=== PATIENT | male | born 2000 | race Caucasian/White ===

== ENCOUNTER 2021-11-22 18:52 | Inpatient (IN) ==
[2021-11-22 20:03] LABS: Appearance Urine Clear (Clear); Bilirubin Urine Negative (Negative); Blood Urine Negative (Negative); Color Urine Yellow; Glucose Urine UA Negative (Negative); Ketones Urine Negative (Negative); Leukocyte Esterase Urine Negative (Negative); Nitrite Urine Negative (Negative); Protein Urine Negative (Negative); Specific Gravity Urine 1.005 (1.000-1.030); Urobilinogen Urine Negative (Negative); pH Urine 6.5 (4.5-7.5)
[2021-11-22 20:12] LABS: Basophils # (auto) 0.04 K/uL (0-0.2); Basophils % (auto) 0.7 %; Eosinophils # (auto) 0.11 K/uL (0-0.5); Hemoglobin 14.5 g/dL (14.0-18.0); Immature Granulocytes # (auto) 0.01 K/uL (0.00-0.02); Immature Granulocytes % (auto) 0.2 %; Lymphocytes # (auto) 1.95 K/uL (1.2-3.4); Lymphocytes % (auto) 34.8 %; Mean Corpuscular Hgb Conc 36.3 g/dL (32-36); Mean Corpuscular Volume 85.7 fL (80-100); Mean Platelet Volume 9.5 fL (7.4-10.4); Monocytes # (auto) 0.29 K/uL (0.11-0.59); Monocytes % (auto) 5.2 %; Neutrophils % (auto) 57.1 %; Platelet Count 264 K/uL (130-400); RDW Coefficient of Variation 12.2 % (11.5-14.5); RDW Standard Deviation 37.9 fL (36.4-46.3); Red Blood Count 4.67 M/uL (4.7-6.1)
[2021-11-22 20:24] LABS: Amphetamines+Metham, Urine Neg (Neg); Barbiturates, Urine Neg (Neg); Benzodiazepine, Urine Neg (Neg); Cocaine, Urine Neg (Neg); MDMA (Ecstacy), Urine Neg (Neg); Methadone, Urine Neg (Neg); Opiate, Urine Neg (Neg); Phencyclidine, Urine Neg (Neg)
--- NOTE | 2021-11-22 20:26 | Emergency Department Note ---
Impression & Plan Suicidal ideation, Depression, Mood disorder ED Provider Note NAME: PATTI ALCANTARA AGE: 21 SEX: M : 2000 ARRIVES VIA: Walk-In INFORMANT: Patient ED PROVIDER(S): Gamal Riojas DO CHIEF COMPLAINT: Suicidal thoughts HPI: Patient is a 21-year-old male who presents to the ER for suicidal thoughts. Patient notes symptoms have been going on for over a year. It has worsened recently. He was talking with his girlfriend and consequently he was brought in by police. Patient notes that he has been thinking about suicide recently more frequently. He is thinking through ways that he does not want to do it. He denies any auditory visual hallucinations. No headache or change in vision. No chest pain or shortness of breath. No nausea vomiting or diarrhea. ROS: See above HPI for pertinent positives & negatives. A total of 10 systems reviewed and were otherwise negative. PAST MEDICAL HISTORY:See Below PAST SURGICAL HISTORY:See Below FAMILY HISTORY:See Below SOCIAL HISTORY:See Below HOME MEDICATIONS:See Below ALLERGIES:See Below VITALS:See Below PHYSICAL EXAMINATION: GENERAL: Sitting up in bed, alert, well appearing, well nourished, no distress, non-toxic EYE EXAM: normal conjunctiva. PERRL and EOM's grossly intact. OROPHARYNX: mucous membranes are moist LUNGS: Clear to auscultation. Normal chest wall mechanics HEART: no murmurs, S1 normal and S2 normal ABDOMEN: abdomen soft, non-tender, normo-active bowel sounds, no masses, no rebound or guarding. UPPER EXTREMITIES: upper extremities are grossly normal. LOWER EXTREMITIES: No pitting edema. NEURO EXAM: Normal sensorium, cranial nerves II-XII grossly intact, normal speech, no gross weakness of arms, no gross weakness of legs. PSYCH: Admits to suicidal thoughts MEDICAL DECISION MAKING: Patient is a 21-year-old male who presents to the ER for suicidal ideations. Blood work was obtained and showed no significant leukocytosis or anemia. BMP along with LFTs, bilirubin, and TSH was unremarkable. UA was clean. Tox was negative. Alcohol was negative. COVID was negative. Patient is agreeable to come in on a 201. I do feel this is warranted at this time with his suicidal ideations. He was updated bedside. Referred to [facility] for further evaluation. Patient was admitted on a [address] [place] [address]. Start Time: 1999 Reason: Patient with PMHx of depression underwent ED Observation for psychiatric evaluation. Fam Hx: No pertinent family history SocHx: See Below Assessment(s): Reevaluated multiple times Summary: Please refer to [facility] Disposition: 11/23/2021 at 1215 Total Time: 4.5h Triage Nursing notes reviewed. Limited review of prior medical records performed Vital Signs: reviewed and remarkable for no significant abnormalities Differential diagnosis: Mood disorder, infection, hypoglycemia, electrolyte abnormalities, cardiac sources, intracerebral event, toxicologic, trauma, neurologic, as well as other pathologies. ER treatment provided: See below Diagnostics interpreted by me: Laboratory studies: As stated above and show below. Imaging studies: See below Consultation(s): none Past Med/Surg History Social History Smoking Status: Current every day smoker Tobacco Type: E-cigarettes / Vaping Preferred Language: Greenlandic Communication Ability: Effective Vegetable Harvest Worker Required: No Beliefs That Will Affect Care: Taoist Taoist Beliefs: [place] , Spiritual Spiritual Healthcare Practices: [place] and Cultural Cultural Beliefs: [place] Feels Safe at Home: Hesitant to Answer Allergies Allergies Allergy/AdvReac Type Severity Reaction Status Date / Time No Known Allergies Allergy Verified 11/23/21 13:48 Home Meds Home Medications Medication Instructions Recorded Confirmed No Known Home Medications 11/22/21 11/22/21 Results & Data (ED) Vital Signs Vital Signs - 24 hr 11/22/21 18:56 11/22/21 21:00 Temperature 36.8 C Temperature Source Temporal Artery Scan Pulse Rate 92 H Pulse Rate [Apical] 81 Respiratory Rate 18 12 Respiratory Effort / Characteristics Non-Labored Spontaneous Respiratory Depth Normal Blood Pressure 135/84 Blood Pressure [Left Arm] 119/84 Blood Pressure Mean 101 Blood Pressure Mean [Left Arm] 95 Pulse Oximetry 98 98 Oxygen Delivery Method Room Air Sepsis Recent Fever Within 48 Hours No Sepsis New/Unexplained Change in Mental Status No Sepsis Action Taken by Nursing No Action Required Laboratory Data Result diagrams: 11/22/21 19:58 11/22/21 19:58 Lab Results 11/22/21 11/22/21 11/22/21 Range/Units 19:30 19:30 19:58 WBC 5.60 (4.8-10.8) K/uL RBC 4.67 L (4.7-6.1) M/uL Hgb 14.5 (14.0-18.0) g/dL Hct 40.0 L (42-52) % MCV 85.7 (80-100) fL MCH 31.0 (25-34) pg MCHC 36.3 H (32-36) g/dL RDW Std Deviation 37.9 (36.4-46.3) fL RDW Coeff of Dmitry 12.2 (11.5-14.5) % Plt Count 264 (130-400) K/uL MPV 9.5 (7.4-10.4) fL Immature Gran % (Auto) 0.2 % Neut % (Auto) 57.1 % Lymph % (Auto) 34.8 % Hern[place] % (Auto) 5.2 % Eos % (Auto) 2.0 % Baso % (Auto) 0.7 % Neut # (Auto) 3.20 (1.4-6.5) K/uL Lymph # (Auto) 1.95 (1.2-3.4) K/uL Hernando # (Auto) 0.29 (0.11-0.59) K/uL Eos # (Auto) 0.11 (0-0.5) K/uL Baso # (Auto) 0.04 (0-0.2) K/uL Immature Gran # (Auto) 0.01 (0.00-0.02) K/uL Sodium (136-145) mmol/L Potassium (3.5-5.1) mmol/L Chloride (98-107) mmol/L Carbon Dioxide (21-32) mmol/L Anion Gap (3-11) BUN (6-23) mg/dl Creatinine (0.6-1.4) mg/dl Est Cr Clr Drug Dosing ml/min Est GFR ( Amer) ml/min Est GFR (Non-Af Amer) ml/min BUN/Creatinine Ratio (10-20) Glucose (70-99(Fasting)) mg/dl Calcium (8.5-10.1) mg/dl Total Bilirubin (0.2-1.0) mg/dl AST (13-39) U/L ALT (7-52) U/L Alkaline Phosphatase (34-104) U/L Total Protein (6.0-8.3) gm/dl Albumin (3.4-5.0) gm/dl Globulin (2.5-4.0) gm/dl Albumin/Globulin Ratio (0.9-2) TSH (0.300-4.500) uIu/ml Urine Color Yellow Urine Appearance Clear (Clear) Urine pH 6.5 (4.5-7.5) Ur Specific [place] 1.005 (1.000-1.030) Urine Protein Negative (Negative) Urine Glucose (UA) Negative (Negative) Urine Ketones Negative (Negative) Urine Blood Negative (Negative) Urine Nitrite Negative (Negative) Urine Bilirubin Negative (Negative) Urine Urobilinogen Negative (Negative) Ur Leukocyte Esterase Negative (Negative) Salicylates (3.0-30) mg/dl Urine Opiates Screen Neg (Neg) Ur Methadone, Qual Neg (Neg) Acetaminophen (10-30) ug/ml Urine Barbiturates Neg (Neg) Ur Phencyclidine (PCP) Neg (Neg) U Amphetamin/Meth Scrn Neg (Neg) MDMA (Ecstasy) Screen Neg (Neg) U Benzodiazepines Scrn Neg (Neg) Ur Cocaine Metabolite Neg (Neg) U Marijuana (THC) Screen Neg (Neg) Ethyl Alcohol mg/dL (<10.0) mg/dl SARS-CoV-2, RNA, NAAT (NEGATIVE) 11/22/21 11/22/21 11/22/21 Range/Units 19:58 19:58 19:58 WBC (4.8-10.8) K/uL RBC (4.7-6.1) M/uL Hgb (14.0-18.0) g/dL Hct (42-52) % MCV (80-100) fL MCH (25-34) pg MCHC (32-36) g/dL RDW Std Deviation (36.4-46.3) fL RDW Coeff of Dmitry (11.5-14.5) % Plt Count (130-400) K/uL MPV (7.4-10.4) fL Immature Gran % (Auto) % Neut % (Auto) % Lymph % (Auto) % [place] % (Auto) % Eos % (Auto) % Baso % (Auto) % Neut # (Auto) (1.4-6.5) K/uL Lymph # (Auto) (1.2-3.4) K/uL [place] # (Auto) (0.11-0.59) K/uL Eos # (Auto) (0-0.5) K/uL Baso # (Auto) (0-0.2) K/uL Immature Gran # (Auto) (0.00-0.02) K/uL Sodium 137 (136-145) mmol/L Potassium 4.3 (3.5-5.1) mmol/L Chloride 102 (98-107) mmol/L Carbon Dioxide 28 (21-32) mmol/L Anion Gap 7 (3-11) BUN 16 (6-23) mg/dl Creatinine 1.08 (0.6-1.4) mg/dl Est Cr Clr Drug Dosing 113.3 ml/min Est GFR ( Amer) 111.5 ml/min Est GFR (Non-Af Amer) 96.2 ml/min BUN/Creatinine Ratio 14.8 (10-20) Glucose 90 (70-99(Fasting)) mg/dl Calcium 9.8 (8.5-10.1) mg/dl Total Bilirubin 0.7 (0.2-1.0) mg/dl AST 16 (13-39) U/L ALT 16 (7-52) U/L Alkaline Phosphatase 69 (34-104) U/L Total Protein 7.4 (6.0-8.3) gm/dl Albumin 4.8 (3.4-5.0) gm/dl Globulin 2.6 (2.5-4.0) gm/dl Albumin/Globulin Ratio 1.8 (0.9-2) TSH 3.059 (0.300-4.500) uIu/ml Urine Color Urine Appearance (Clear) Urine pH (4.5-7.5) Ur Specific [place] (1.000-1.030) Urine Protein (Negative) Urine Glucose (UA) (Negative) Urine Ketones (Negative) Urine Blood (Negative) Urine Nitrite (Negative) Urine Bilirubin (Negative) Urine Urobilinogen (Negative) Ur Leukocyte Esterase (Negative) Salicylates < 3.0 L (3.0-30) mg/dl Urine Opiates Screen (Neg) Ur Methadone, Qual (Neg) Acetaminophen < 3 L (10-30) ug/ml Urine Barbiturates (Neg) Ur Phencyclidine (PCP) (Neg) U Amphetamin/Meth Scrn (Neg) MDMA (Ecstasy) Screen (Neg) U Benzodiazepines Scrn (Neg) Ur Cocaine Metabolite (Neg) U Marijuana (THC) Screen (Neg) Ethyl Alcohol mg/dL (<10.0) mg/dl SARS-CoV-2, RNA, NAAT (NEGATIVE) 11/22/21 11/22/21 Range/Units 19:58 20:33 WBC (4.8-10.8) K/uL RBC (4.7-6.1) M/uL Hgb (14.0-18.0) g/dL Hct (42-52) % MCV (80-100) fL MCH (25-34) pg MCHC (32-36) g/dL RDW Std Deviation (36.4-46.3) fL RDW Coeff of Dmitry (11.5-14.5) % Plt Count (130-400) K/uL MPV (7.4-10.4) fL Immature Gran % (Auto) % Neut % (Auto) % Lymph % (Auto) % [place] % (Auto) % Eos % (Auto) % Baso % (Auto) % Neut # (Auto) (1.4-6.5) K/uL Lymph # (Auto) (1.2-3.4) K/uL [place] # (Auto) (0.11-0.59) K/uL Eos # (Auto) (0-0.5) K/uL Baso # (Auto) (0-0.2) K/uL Immature Gran # (Auto) (0.00-0.02) K/uL Sodium (136-145) mmol/L Potassium (3.5-5.1) mmol/L Chloride (98-107) mmol/L Carbon Dioxide (21-32) mmol/L Anion Gap (3-11) BUN (6-23) mg/dl Creatinine (0.6-1.4) mg/dl Est Cr Clr Drug Dosing ml/min Est GFR ( Amer) ml/min Est GFR (Non-Af Amer) ml/min BUN/Creatinine Ratio (10-20) Glucose (70-99(Fasting)) mg/dl Calcium (8.5-10.1) mg/dl Total Bilirubin (0.2-1.0) mg/dl AST (13-39) U/L ALT (7-52) U/L Alkaline Phosphatase (34-104) U/L Total Protein (6.0-8.3) gm/dl Albumin (3.4-5.0) gm/dl Globulin (2.5-4.0) gm/dl Albumin/Globulin Ratio (0.9-2) TSH (0.300-4.500) uIu/ml Urine Color Urine Appearance (Clear) Urine pH (4.5-7.5) Ur Specific [place] (1.000-1.030) Urine Protein (Negative) Urine Glucose (UA) (Negative) Urine Ketones (Negative) Urine Blood (Negative) Urine Nitrite (Negative) Urine Bilirubin (Negative) Urine Urobilinogen (Negative) Ur Leukocyte Esterase (Negative) Salicylates (3.0-30) mg/dl Urine Opiates Screen (Neg) Ur Methadone, Qual (Neg) Acetaminophen (10-30) ug/ml Urine Barbiturates (Neg) Ur Phencyclidine (PCP) (Neg) U Amphetamin/Meth Scrn (Neg) MDMA (Ecstasy) Screen (Neg) U Benzodiazepines Scrn (Neg) Ur Cocaine Metabolite (Neg) U Marijuana (THC) Screen (Neg) Ethyl Alcohol mg/dL < 10.0 (<10.0) mg/dl SARS-CoV-2, RNA, NAAT NEGATIVE (NEGATIVE) Discharge Plan Visit Data Chief Complaint: Mental Health Evaluation Stated Complaint: MENTAL HEALTH EVALUATION ED Provider: Gamal Riojas Discharge Problem: Suicidal ideation, Depression, Mood disorder Patient Disposition: Admitted As Inpatient Discharge Instructions Interventions: ED Discharge Assessment Last Done: 11/23/21 01:10 Discharge Problem: Depression Qualifiers: Depression Type: unspecified Qualified Code(s): F32.A - Depression, unspecified
[2021-11-22 20:39] LABS: Acetaminophen < 3 ug/ml (10-30); Albumin Globulin Ratio 1.8 (0.9-2); Albumin Level 4.8 gm/dl (3.4-5.0); BUN Creatinine Ratio 14.8 (10-20); Bilirubin,Total 0.7 mg/dl (0.2-1.0); Calcium 9.8 mg/dl (8.5-10.1); Creatinine Clr Calc Pharmacy 113.3 ml/min; Est GFR (African American) 111.5 ml/min; Est GFR (Non-African American) 96.2 ml/min; Globulin 2.6 gm/dl (2.5-4.0); Potassium 4.3 mmol/L (3.5-5.1); Salicylate < 3.0 mg/dl (3.0-30); Total Protein 7.4 gm/dl (6.0-8.3)
[2021-11-23] MEDS ORDERED: MAGNESIUM HYDROXIDE SUSP 30 ML UDC PO PRN (00:43)
[2021-11-23] MEDS ORDERED: SODIUM CHLORIDE 0.65% NA SOLN 45 ML (OCEAN) PRN (00:43)
[2021-11-23] MEDS ORDERED: hydrOXYzine HCl 25 MG TAB PO PRN ×2 (00:43)
[2021-11-23] MEDS ORDERED: BISMUTH SUBSALICYLATE LIQD 236 ML PO PRN (00:43)
[2021-11-23] MEDS ORDERED: ALUMINUM/MAGNESIUM SUSP 30 ML UDC PO PRN (00:43)
[2021-11-23] MEDS ORDERED: ACETAMINOPHEN 325 MG TAB PO PRN (00:43)
--- NOTE | 2021-11-23 13:06 | History & Physical ---
Date of Service November 23, 2021 Impression / Recommendations Impression The patient is a 21 year old man admitted for worsening depression and SI with plan of jumping from a building on campus in the context of increasing stress related to graduate school, strained relationship with his family and feeling as though he has lost agency over his life and decisions. Diagnostically consistent with persistent depressive disorder vs MDD, recurrent with anxious distress as well as RAMEZ with panic attacks. The patient is deemed unstable and requires psychiatric hospitalization for diagnostic clarification, safety and stabilization, medication management and development of further coping skills. Discussed medication treatment options in detail. Discussed risks, benefits and alternatives including SSRIs vs Wellbutrin. Patient would like to start and consented to escitalopram for MDD/RAMEZ. Reviewed side effects including but not limited to: GI, ALTAMIRANO, sexual side effects, and counseled on black box warning of potential for emergence of or increased SI and need to let staff know should th is occur or should they feel unsafe. Also discussed importance of seeking emergency care following discharge if this side effect occurs in the future. (1) Recurrent moderate major depressive disorder with anxiety: (2) Generalized anxiety disorder with panic attacks: (3) Suicidal ideation: 11/23/21: The patient was admitted to the [facility] ([facility] mental [facility] unit) on q15 min checks (behavioral with suicide precautions) for safety. The patient will participate in group, recreational, and milieu therapies and will be offered additional individual and family sessions as clinically appropriate. -escitalopram 5mg qd -he declines melatonin -NRT patch 14mg and gum prn Inventory Assets Strengths: attending graduate school, has a supportive girlfriend Needs: outpatient services, medication adjustment, stabilization, increased coping skills Suicide Risk Level Suicide Risk Level: High (q15 min suicide checks) (High-Moderate) Suicide Risk Level Comments: Depression with SI with plan prior to admission but feels safe here and agrees to let nursing/staff know should he develop thoughts of SI, plan or intent. 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 Chief Complaint "I'm here because of them, it feels like I'm in [facility]p and how do I get out?". History of Present Illness Pedro presents for psychiatric admission for worsening depression and SI with plan of jumping from a high window of a campus building in the context of multiple psychosocial stressors including conflict with his family and academic high stakes exams-his written comps is the 15th and oral comps 29th. He was brought to the ED on a 302 warrant by [employer] police after texting his girlfriend telling her that "he was going to kill himself later tonight" by jumping out of a high story window on campus. He told police that he did not want to live and was depressed due to pressure from graduate school. He ultimately agreed to a voluntary 201 status. He now tells me he was "frustrated" and "didn't have a plan" and feels that his girlfriend and her mother overreacted. He notes that graduate school is the main stressor and that "I'm damn good at it but I feel trapped, I just don't want to do it". He notes he graduated right when COVID "shut everything down so it messed me up pretty bad". He felt "pressured pretty heavily by my parents if I waited, that I'd be ruining my life if I didn't go to graduate school". He notes he is a "people pleaser" and so has difficulty pushing back against what they want. 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 He notes he had to fight with his parents to get a therapist a year ago. He feels his girlfriend is a really good support but she lives in [place]. He endorses depression symptoms including tearfulness, helplessness, still enjoys video games/listening to music but hasn't been doing them, decreased motivation, decreased sleep with initial onset insomnia but states he is sleeping 8-9 hours per night but his sleep cycle is altered, and appetite is stable. He denies any current SI. He endorses chronic SI, which varies, but when "things get really hard I want to " and feels it worsened in the context of increased school stressors. He feels the thought yesterday was impulsive. He notes he feels "very trapped". He also endorses high levels of anxiety with panic attacks, he worries he will never be able to get a job in industry because they prefer students right out of undergraduate and if he doesn't complete graduate school they would see that as a very bad sign and would prevent him from finding a job. He is not taking any psychiatric medications. Psychiatric ROS notable for denial of hx or current symptoms of: maynor, psychosis, self-harm, nor PTSD. Past Psychiatric History Outpatient Services: none currently; hx outpatient therapy last 1 year ago via teletherapy with provider in [place] Previous Psych Admissions: n/a Do You Have Access To A Gun?: No History of Previous Suicide Attempt: Yes Describe Attempts in the Past: previous attempt by hanging 6 years ago at 1st year at [employer] Past Medication Trials: none Past Head Trauma/Neuro History History of Concussion/Seizure: No Allergies Allergy/AdvReac Type Severity Reaction Status Date / Time No Known Allergies Allergy Verified 11/23/21 13:48 Home Medications Medication Instructions Recorded Confirmed Type No Known Home Medications 11/22/21 11/22/21 History Family History Family History of: Depression (sister) and Anxiety Family Mental Health History Comment: Alcohol History Hx of Alcohol Use Over the Past 12 Months: Yes (1 or 2 beers two to three days a week) AUDIT Total Score: 4 1-2 beers, 2-3 days per week. No hx blackouts. No hx legal consequences. No social consequences or academic consequences. Smoking Use Have You Smoked or Used Tobacco Products in the Last 30 Days: Yes tobacco type: e-cigarettes Smoking Status: Current every day smoker Smoking packs per day: 0.5 Substance History Hx of Prescription Med Misuse Over the Past 12 Months: No Hx of Over the Counter Med Misuse Over the Past 12 Months: No Hx of Inhalent Misuse Over the Past 12 Months: No Hx of Organic Substance Use Over the Past 12 Months: No Hx of Illegal Substances/Street Drug Use Over Past 12 Months: No Problems as a Result of Past Substance Use: None Identified Personal History Living Arrangements: Apartment (lives alone) Childhood: His parents live in [place], [place] he has a brother and sister. Attended undergraduate at [employer]. His brother is an undergrad at [employer]. 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 Required: No Beliefs That Will Affect Care: Jehovah'S Witness Jehovah'S Witness Beliefs: Hinduism of [place] , Spiritual Spiritual Healthcare Practices: Hinduism of [place] and Cultural Cultural Beliefs: Hinduism of [place] Feels Safe at Home: Hesitant to Answer Review of Systems Review of Systems: All systems reviewed & are unremarkable except as noted in HPI & below Physical Exam Psychiatric: Orientation: alert and oriented x 3 Apperance: appropriately dressed and appropriately groomed Eye Contact: good eye contact Motor Behavior: no abnormal motor movements Speech: normal rate/rhythm/volume of speech Affect: + depressed affect, + anxious affect and + tearful affect Mood: + depressed mood and + anxious mood Thought Process: goal directed thought process Thought Content: reality based without delusions Suicidal Thoughts: denies suicidal thoughts (but had SI with plan prior to admission), denies suicidal plan and denies suicidal intent Homicidal Thoughts: denies homicidal thoughts Hallucinations: no auditory hallucinations and no visual hallucinations Cognition: recent memory grossly intact, remote memory grossly intact, attention grossly intact and language grossly intact Estimated Intelligence: consistent with education level Insight: + fair insight Judgement: + limited judgement Vital Signs (Past 24 Hours): Last Vital Signs Temp 37.1 C 11/23/21 01:52 Pulse 71 11/23/21 01:52 Resp 12 11/22/21 21:00 BP 119/84 11/22/21 21:00 Pulse Ox 98 11/22/21 21:00 Exam Statement: A physical exam was performed in the ED by Dr. Riojas for the purposes of medical clearance. I accept that physical as correct and adequate for the purposes of the inpatient physical exam. Results & Data ([facility]) Laboratory Results Laboratory Results - last 24 hr 11/22/21 11/22/21 11/22/21 19:30 19:30 19:58 WBC 5.60 RBC 4.67 L Hgb 14.5 Hct 40.0 L MCV 85.7 MCH 31.0 MCHC 36.3 H RDW Std Deviation 37.9 RDW Coeff of Dmitry 12.2 Plt Count 264 MPV 9.5 Immature Gran % (Auto) 0.2 Neut % (Auto) 57.1 Lymph % (Auto) 34.8 [place] % (Auto) 5.2 Eos % (Auto) 2.0 Baso % (Auto) 0.7 Neut # (Auto) 3.20 Lymph # (Auto) 1.95 [place] # (Auto) 0.29 Eos # (Auto) 0.11 Baso # (Auto) 0.04 Immature Gran # (Auto) 0.01 Sodium Potassium Chloride Carbon Dioxide Anion Gap BUN Creatinine Est Cr Clr Drug Dosing Est GFR ( Amer) Est GFR (Non-Af Amer) BUN/Creatinine Ratio Glucose Calcium Total Bilirubin AST ALT Alkaline Phosphatase Total Protein Albumin Globulin Albumin/Globulin Ratio TSH Urine Color Yellow Urine Appearance Clear Urine pH 6.5 Ur Specific [place] 1.005 Urine Protein Negative Urine Glucose (UA) Negative Urine Ketones Negative Urine Blood Negative Urine Nitrite Negative Urine Bilirubin Negative Urine Urobilinogen Negative Ur Leukocyte Esterase Negative Salicylates Urine Opiates Screen Neg Ur Methadone, Qual Neg Acetaminophen Urine Barbiturates Neg Ur Phencyclidine (PCP) Neg U Amphetamin/Meth Scrn Neg MDMA (Ecstasy) Screen Neg U Benzodiazepines Scrn Neg Ur Cocaine Metabolite Neg U Marijuana (THC) Screen Neg Ethyl Alcohol mg/dL SARS-CoV-2, RNA, NAAT 11/22/21 11/22/21 11/22/21 19:58 19:58 19:58 WBC RBC Hgb Hct MCV MCH MCHC RDW Std Deviation RDW Coeff of Dmitry Plt Count MPV Immature Gran % (Auto) Neut % (Auto) Lymph % (Auto) [place] % (Auto) Eos % (Auto) Baso % (Auto) Neut # (Auto) Lymph # (Auto) [place] # (Auto) Eos # (Auto) Baso # (Auto) Immature Gran # (Auto) Sodium 137 Potassium 4.3 Chloride 102 Carbon Dioxide 28 Anion Gap 7 BUN 16 Creatinine 1.08 Est Cr Clr Drug Dosing 113.3 Est GFR ( Amer) 111.5 Est GFR (Non-Af Amer) 96.2 BUN/Creatinine Ratio 14.8 Glucose 90 Calcium 9.8 Total Bilirubin 0.7 AST 16 ALT 16 Alkaline Phosphatase 69 Total Protein 7.4 Albumin 4.8 Globulin 2.6 Albumin/Globulin Ratio 1.8 TSH 3.059 Urine Color Urine Appearance Urine pH Ur Specific [place] Urine Protein Urine Glucose (UA) Urine Ketones Urine Blood Urine Nitrite Urine Bilirubin Urine Urobilinogen Ur Leukocyte Esterase Salicylates < 3.0 L Urine Opiates Screen Ur Methadone, Qual Acetaminophen < 3 L Urine Barbiturates Ur Phencyclidine (PCP) U Amphetamin/Meth Scrn MDMA (Ecstasy) Screen U Benzodiazepines Scrn Ur Cocaine Metabolite U Marijuana (THC) Screen Ethyl Alcohol mg/dL SARS-CoV-2, RNA, NAAT 11/22/21 11/22/21 19:58 20:33 WBC RBC Hgb Hct MCV MCH MCHC RDW Std Deviation RDW Coeff of Dmitry Plt Count MPV Immature Gran % (Auto) Neut % (Auto) Lymph % (Auto) [place] % (Auto) Eos % (Auto) Baso % (Auto) Neut # (Auto) Lymph # (Auto) [place] # (Auto) Eos # (Auto) Baso # (Auto) Immature Gran # (Auto) Sodium Potassium Chloride Carbon Dioxide Anion Gap BUN Creatinine Est Cr Clr Drug Dosing Est GFR ( Amer) Est GFR (Non-Af Amer) BUN/Creatinine Ratio Glucose Calcium Total Bilirubin AST ALT Alkaline Phosphatase Total Protein Albumin Globulin Albumin/Globulin Ratio TSH Urine Color Urine Appearance Urine pH Ur Specific [place] Urine Protein Urine Glucose (UA) Urine Ketones Urine Blood Urine Nitrite Urine Bilirubin Urine Urobilinogen Ur Leukocyte Esterase Salicylates Urine Opiates Screen Ur Methadone, Qual Acetaminophen Urine Barbiturates Ur Phencyclidine (PCP) U Amphetamin/Meth Scrn MDMA (Ecstasy) Screen U Benzodiazepines Scrn Ur Cocaine Metabolite U Marijuana (THC) Screen Ethyl Alcohol mg/dL < 10.0 SARS-CoV-2, RNA, NAAT NEGATIVE Current Inpatient Medications Current Inpatient Medications: Current Inpatient Medications Acetaminophen (Acetaminophen 325 Mg Tab) 650 mg PO Q4H PRN PRN Reason: Headache or Minor Fever Stop: 12/23/21 00:42 Al Hydrox/Mg Hydrox/Simethicone (Aluminum/Magnesium Susp 30 Ml Udc) 30 ml PO Q4H PRN PRN Reason: GI Upset Stop: 12/23/21 00:42 Bismuth Subsalicylate (Bismuth Subsalicylate Liqd 236 Ml) 15 ml PO PRN PRN PRN Reason: Loose Stool Stop: 12/23/21 00:42 Hydroxyzine HCl (Hydroxyzine Hcl 25 Mg Tab) 50 mg PO HSZ PRN PRN Reason: Insomnia Stop: 12/23/21 00:42 Hydroxyzine HCl (Hydroxyzine Hcl 25 Mg Tab) 25 mg PO Q4H PRN PRN Reason: Anxiety Stop: 12/23/21 00:42 Magnesium Hydroxide (Magnesium Hydroxide Susp 30 Ml Udc) 30 ml PO DAILY PRN PRN Reason: Constipation Stop: 12/23/21 00:42 Sodium Chloride (Sodium Chloride 0.65% Na Soln 45 Ml ([place])) 1 - 2 sprays NA PRN PRN PRN Reason: Nasal Dryness/Congestion Stop: 12/23/21 00:42
[2021-11-23] MEDS ORDERED: NICOTINE POLACRILEX 2 MG GUM MT PRN (14:41)
[2021-11-23] MEDS: NICOTINE 14 MG/24 HR PATCH TD SCH (15:00)
[2021-11-24] MEDS: ESCITALOPRAM OXALATE 10 MG TAB PO SCH (08:49)
[2021-11-24] MEDS: NICOTINE 14 MG/24 HR PATCH TD SCH (08:50)
--- NOTE | 2021-11-24 08:50 | Psychiatric Progress Note ---
Date of Service November 24, 2021 Impression / Recommendations Impression The patient is a 21 year old man admitted for worsening depression and SI with plan of jumping from a building on campus in the context of increasing stress related to graduate school, strained relationship with his family and feeling as though he has lost agency over his life and decisions. Diagnostically consistent with persistent depressive disorder vs MDD, recurrent with anxious distress as well as RAMEZ with panic attacks. The patient is deemed unstable and requires psychiatric hospitalization for diagnostic clarification, safety and stabilization, medication management and development of further coping skills. 11/24/21: Still with depression and anxiety but feeling less frantic today given news of comprehensive exam delay. Tolerating escitalopram so far. Willing to involve his family a bit this afternoon. (1) Recurrent moderate major depressive disorder with anxiety: (2) Generalized anxiety disorder with panic attacks: (3) Suicidal ideation: 11/24/21: Continue escitalopram and tx plan. 11/23/21: The patient was admitted to the [facility] on q15 min checks (behavioral with suicide precautions) for safety. The patient will participate in group, recreational, and milieu therapies and will be offered additional individual and family sessions as clinically appropriate. -escitalopram 5mg qd -he declines melatonin -NRT patch 14mg and gum prn Inventory Assets Strengths: attending graduate school, has a supportive girlfriend Needs: outpatient services, medication adjustment, stabilization, increased coping skills Suicide Risk Level Suicide Risk Level: High (q15 min suicide checks) (High-Moderate) Suicide Risk Level Comments: Depression with SI with plan prior to admission but feels safe here and agrees to let nursing/staff know should he develop thoughts of SI, plan or intent. 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 Chief Complaint "I'm ok". Review of Systems Sleep Information Total Hours of Sleep: 5.75 Sleep Comments: pt poor sleep due to late admission. pt on q-15 minute checks Meal Information Percent Meal Consumed - Breakfast: 0 Percent Meal Consumed - Dinner: 100 Subjective Subjective Patient was seen & assessed and interval progress reviewed with treatment team nursing and social work. Attended groups yesterday late afternoon. Initially didn't sign an WOLF for parents but did for girlfriend but then did sign for his dad late this afternoon. Submitted 72 hour notice which is up on 11/26 at 1436. Today he reports his mood is "ok". He is feeling a little calmer and less urgent about discharge now that he's learned his written component of his comprehensive exams has gotten pushed back and is no longer on November 29. Slept "ok" given that his sleep schedule was so flipped and took him awhile to feel tired and able to fall asleep. No side effects from the escitalopram. Decided not to use any NRT as he hopes that this is an opportunity to get away from any nicotine products completed. Reviewed again Wellbutrin augmentation option in future if tobacco cessation remains difficult. Denies SI. Reviewed that he feels embarrassed that everyone in his lab saw the police come to check on him and take him to the hospital but also processed how other people also struggle with depression and ways he may talk to his lab mates/what he may share with them or choose not to share after he leaves the hospital. Physical Exam Psychiatric Orientation: alert and oriented x 3 Apperance: appropriately dressed and appropriately groomed Eye Contact: good eye contact Motor Behavior: no abnormal motor movements Speech: normal rate/rhythm/volume of speech Affect: + depressed affect and + anxious affect Mood: + depressed mood and + anxious mood Thought Process: goal directed thought process Thought Content: reality based without delusions Suicidal Thoughts: denies suicidal thoughts (but had SI with plan prior to admission), denies suicidal plan and denies suicidal intent Homicidal Thoughts: denies homicidal thoughts Hallucinations: no auditory hallucinations and no visual hallucinations Cognition: recent memory grossly intact, remote memory grossly intact, attention grossly intact and language grossly intact Estimated Intelligence: consistent with education level Insight: + fair insight Judgement: + limited judgement Vital Signs (Past 24 Hours) Last Vital Signs Temp 36.8 C 11/24/21 06:37 Pulse 82 11/24/21 06:38 Resp 18 06/10/22 06:37 BP 94/71 L 11/24/21 06:38 Pulse Ox 98 11/22/21 21:00 Results & Data ([facility]) Current Inpatient Medications Current Inpatient Medications: Current Inpatient Medications Acetaminophen (Acetaminophen 325 Mg Tab) 650 mg PO Q4H PRN PRN Reason: Headache or Minor Fever Stop: 12/23/21 00:42 Al Hydrox/Mg Hydrox/Simethicone (Aluminum/Magnesium Susp 30 Ml Udc) 30 ml PO Q4H PRN PRN Reason: GI Upset Stop: 12/23/21 00:42 Bismuth Subsalicylate (Bismuth Subsalicylate Liqd 236 Ml) 15 ml PO PRN PRN PRN Reason: Loose Stool Stop: 12/23/21 00:42 Escitalopram Oxalate (Escitalopram Oxalate 10 Mg Tab) 5 mg PO QAM [facility] Stop: 12/24/21 08:59 Hydroxyzine HCl (Hydroxyzine Hcl 25 Mg Tab) 50 mg PO HSZ PRN PRN Reason: Insomnia Stop: 12/23/21 00:42 Hydroxyzine HCl (Hydroxyzine Hcl 25 Mg Tab) 25 mg PO Q4H PRN PRN Reason: Anxiety Stop: 12/23/21 00:42 Magnesium Hydroxide (Magnesium Hydroxide Susp 30 Ml Udc) 30 ml PO DAILY PRN PRN Reason: Constipation Stop: 12/23/21 00:42 Miscellaneous (Remove Nicoderm Patch) 1 ea N/A DAILY@[id number] [facility] Stop: 12/24/21 08:58 Nicotine (Nicotine 14 Mg/24 Hr Patch) 14 mg TD [facility] Stop: 12/23/21 14:44 Nicotine Polacrilex (Nicotine Polacrilex 2 Mg Gum) 1 piece MT PRN PRN PRN Reason: nicotine cravings Stop: 12/23/21 14:40 Sodium Chloride (Sodium Chloride 0.65% Na Soln 45 Ml ([place])) 1 - 2 sprays NA PRN PRN PRN Reason: Nasal Dryness/Congestion Stop: 12/23/21 00:42 Post Discharge Appointments [facility] Phys[facility]
[2021-11-25] MEDS: ESCITALOPRAM OXALATE 10 MG TAB PO SCH (08:43)
[2021-11-25] MEDS: NICOTINE 14 MG/24 HR PATCH TD SCH (08:46)
--- NOTE | 2021-11-25 10:50 | Discharge Summary ---
Date of Service November 25, 2021 History of Present Illness As per Dr. Noble on admission: Pedro presents for psychiatric admission for worsening depression and SI with plan of jumping from a high window of a campus building in the context of multiple psychosocial stressors including conflict with his family and academic high stakes exams-his written comps is the 15th and oral comps 29th. He was brought to the ED on a 302 warrant by [facility] police after texting his girlfriend telling her that "he was going to kill himself later tonight" by jumping out of a high story window on campus. He told police that he did not want to live and was depressed due to pressure from graduate school. He ultimately agreed to a voluntary 201 status. He now tells me he was "frustrated" and "didn't have a plan" and feels that his girlfriend and her mother overreacted. He notes that graduate school is the main stressor and that "I'm damn good at it but I feel trapped, I just don't want to do it". He notes he graduated right when COVID "shut everything down so it messed me up pretty bad". He felt "pressured pretty heavily by my parents if I waited, that I'd be ruining my life if I didn't go to graduate school". He notes he is a "people pleaser" and so has difficulty pushing back against what they want. 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 He notes he had to fight with his parents to get a therapist a year ago. He feels his girlfriend is a really good support but she lives in [place]. He endorses depression symptoms including tearfulness, helplessness, still enjoys video games/listening to music but hasn't been doing them, decreased motivation, decreased sleep with initial onset insomnia but states he is sleeping 8-9 hours per night but his sleep cycle is altered, and appetite is stable. He denies any current SI. He endorses chronic SI, which varies, but when "things get really hard I want to " and feels it worsened in the context of increased school stressors. He feels the thought yesterday was impulsive. He notes he feels "very trapped". He also endorses high levels of anxiety with panic attacks, he worries he will never be able to get a job in industry because they prefer students right out of undergraduate and if he doesn't complete graduate school they would see that as a very bad sign and would prevent him from finding a job. He is not taking any psychiatric medications. Psychiatric ROS notable for denial of hx or current symptoms of: maynor, psych osis, self-harm, nor PTSD. Physical Exam Psychiatric See admission H&P and DOD assessment. Vital Signs (Past 24 Hours) Last Vital Signs Temp 36.8 C 11/25/21 06:39 Pulse 105 H 11/25/21 06:40 Resp 18 11/25/21 06:39 BP 104/73 11/25/21 06:40 Pulse Ox 98 11/22/21 21:00 Principal Diagnosis major depressive disorder Psychiatric Data See daily stay summary. In short, safety was maintained and the patient was cooperative with care. Medication changes included a trial of Lexapro and they tolerated this well. The dose was increased to 10 mg upon discharge with instructions that can split tabs in half if any concerns of persistent side effects prior to his appointment with his new prescriber. A family session was held and safety plan was completed prior to discharge. Day of Discharge Assessment Today the patient voices readiness for discharge. They note improvement in mood and deny thoughts to harm self or others. Thoughts remain organized and they are improved from admission. There is no evidence of psychosis. They agree to take mediations as prescribed and keep follow-up appointments. They are stable for discharge to outpatient level of care. Transition of Care Transition Of Care Record: was reviewed with the patient Advance Directives Advance Directives Information Provided: Yes Advance Directives: No Mental Health Advance Directive: No Advance Directives on File: No Living Will: No Power of Manager Office: No Advance Directives Reason:: Declines as Mental Health Visit. Suicide Risk Level Suicide Risk Level Comments: low--consistently denying SI, has safety plan, no longer requiring 24-hr monitoring. Risk Factors Assessment Male: Yes : Yes Do You Have Access To A Gun?: No Mental Health Diagnoses: Yes Previous Attempt: Yes Hopelessness: Yes Protective Factors Assessment Employed: Yes ([employer]) Stable Relationships: Yes Tobacco Cessation at Discharge Tobacco Cessation Medication Prescribed at Discharge: Offered & Pt Refused Total Time Total Time Spent: Greater Than 30 Minutes Total Time Includes: Examination of the patient, Discharge Planning and Medication Reconciliation Discharge Data Lab Results 11/22/21 11/22/21 11/22/21 19:30 19:30 19:58 WBC 5.60 RBC 4.67 L Hgb 14.5 Hct 40.0 L MCV 85.7 MCH 31.0 MCHC 36.3 H RDW Std Deviation 37.9 RDW Coeff of Dmitry 12.2 Plt Count 264 MPV 9.5 Immature Gran % (Auto) 0.2 Neut % (Auto) 57.1 Lymph % (Auto) 34.8 [place] % (Auto) 5.2 Eos % (Auto) 2.0 Baso % (Auto) 0.7 Neut # (Auto) 3.20 Lymph # (Auto) 1.95 [place] # (Auto) 0.29 Eos # (Auto) 0.11 Baso # (Auto) 0.04 Immature Gran # (Auto) 0.01 Sodium Potassium Chloride Carbon Dioxide Anion Gap BUN Creatinine Est Cr Clr Drug Dosing Est GFR ( Amer) Est GFR (Non-Af Amer) BUN/Creatinine Ratio Glucose Calcium Total Bilirubin AST ALT Alkaline Phosphatase Total Protein Albumin Globulin Albumin/Globulin Ratio TSH Urine Color Yellow Urine Appearance Clear Urine pH 6.5 Ur Specific [place] 1.005 Urine Protein Negative Urine Glucose (UA) Negative Urine Ketones Negative Urine Blood Negative Urine Nitrite Negative Urine Bilirubin Negative Urine Urobilinogen Negative Ur Leukocyte Esterase Negative Salicylates Urine Opiates Screen Neg Ur Methadone, Qual Neg Acetaminophen Urine Barbiturates Neg Ur Phencyclidine (PCP) Neg U Amphetamin/Meth Scrn Neg MDMA (Ecstasy) Screen Neg U Benzodiazepines Scrn Neg Ur Cocaine Metabolite Neg U Marijuana (THC) Screen Neg Ethyl Alcohol mg/dL SARS-CoV-2, RNA, NAAT 11/22/21 11/22/21 11/22/21 19:58 19:58 19:58 WBC RBC Hgb Hct MCV MCH MCHC RDW Std Deviation RDW Coeff of Dmitry Plt Count MPV Immature Gran % (Auto) Neut % (Auto) Lymph % (Auto) [place] % (Auto) Eos % (Auto) Baso % (Auto) Neut # (Auto) Lymph # (Auto) [place] # (Auto) Eos # (Auto) Baso # (Auto) Immature Gran # (Auto) Sodium 137 Potassium 4.3 Chloride 102 Carbon Dioxide 28 Anion Gap 7 BUN 16 Creatinine 1.08 Est Cr Clr Drug Dosing 113.3 Est GFR ( Amer) 111.5 Est GFR (Non-Af Amer) 96.2 BUN/Creatinine Ratio 14.8 Glucose 90 Calcium 9.8 Total Bilirubin 0.7 AST 16 ALT 16 Alkaline Phosphatase 69 Total Protein 7.4 Albumin 4.8 Globulin 2.6 Albumin/Globulin Ratio 1.8 TSH 3.059 Urine Color Urine Appearance Urine pH Ur Specific [place] Urine Protein Urine Glucose (UA) Urine Ketones Urine Blood Urine Nitrite Urine Bilirubin Urine Urobilinogen Ur Leukocyte Esterase Salicylates < 3.0 L Urine Opiates Screen Ur Methadone, Qual Acetaminophen < 3 L Urine Barbiturates Ur Phencyclidine (PCP) U Amphetamin/Meth Scrn MDMA (Ecstasy) Screen U Benzodiazepines Scrn Ur Cocaine Metabolite U Marijuana (THC) Screen Ethyl Alcohol mg/dL SARS-CoV-2, RNA, NAAT 11/22/21 11/22/21 19:58 20:33 WBC RBC Hgb Hct MCV MCH MCHC RDW Std Deviation RDW Coeff of Dmitry Plt Count MPV Immature Gran % (Auto) Neut % (Auto) Lymph % (Auto) [place] % (Auto) Eos % (Auto) Baso % (Auto) Neut # (Auto) Lymph # (Auto) [place] # (Auto) Eos # (Auto) Baso # (Auto) Immature Gran # (Auto) Sodium Potassium Chloride Carbon Dioxide Anion Gap BUN Creatinine Est Cr Clr Drug Dosing Est GFR ( Amer) Est GFR (Non-Af Amer) BUN/Creatinine Ratio Glucose Calcium Total Bilirubin AST ALT Alkaline Phosphatase Total Protein Albumin Globulin Albumin/Globulin Ratio TSH Urine Color Urine Appearance Urine pH Ur Specific [place] Urine Protein Urine Glucose (UA) Urine Ketones Urine Blood Urine Nitrite Urine Bilirubin Urine Urobilinogen Ur Leukocyte Esterase Salicylates Urine Opiates Screen Ur Methadone, Qual Acetaminophen Urine Barbiturates Ur Phencyclidine (PCP) U Amphetamin/Meth Scrn MDMA (Ecstasy) Screen U Benzodiazepines Scrn Ur Cocaine Metabolite U Marijuana (THC) Screen Ethyl Alcohol mg/dL < 10.0 SARS-CoV-2, RNA, NAAT NEGATIVE Hospital Course (1) Recurrent moderate major depressive disorder with anxiety: (2) Generalized anxiety disorder with panic attacks: (3) Suicidal ideation: 11/24/21: Continue escitalopram and tx plan. 11/23/21: The patient was admitted to the [facility] (locked inpatient mental health unit) on q15 min checks (behavioral with suicide precautions) for safety. The patient will participate in group, recreational, and milieu therapies and will be offered additional individual and family sessions as clinically appropriate. -escitalopram 5mg qd -he declines melatonin -NRT patch 14mg and gum prn Mental Health & Subst Abuse Tx Psychiatrist Name of Psychiatrist: Juli Gentile- Sayra Guajardo PA-C Psychiatrist's Date of Appointment with Psychiatrist: 12/05/21 Time of Appointment with Psychiatrist: 1:30pm Psychiatric Appointment Comment: [address], [place], [place] Therapist Name of Therapist: [facility] Appointment Comment: telehealth Post Discharge Appointments Primary Care Physician Name Of Family Doctor: [facility] Date of Appointment with PCP: 12/04/21 Time of Appointment with PCP: 08:30am Provider Appointment Comment: telehealth- will be contacted using [phone] Smoking Cessation Counseling Tobacco Cessation Medication Prescribed at Discharge: Offered & Pt Refused Other #2: Name of Aftercare Appointment: [facility]- Charu Norris Phone Number of Aftercare Appointment: [phone] Date of Aftercare Appointment: 12/01/21 Time of Aftercare Appointment: 1:30 pm (please reschedule date/time if this doesn't work for you) Aftercare Appointment Comment: will email link to [facility] email Contact Information Discharge Discharge Address: [address], [place] [address] Discharge Plan Discharge Items Patient Disposition: Home - Self-Care Reason For Visit: MAJOR DEPRESSIVE DISORDER Discharge Diagnosis: major depressive disorder Activity: Resume your previous activity Non-emergency contact: Primary Care Provider, Psychiatrist and Therapist Call non-emergency contact if: you have any medication questions and your symptoms worsen Follow-up/Referrals: PCP,NO [Primary Care Provider] - Diet: Regular Addtl Attending Provider Instructions: SPECIAL CARE INSTRUCTIONS: 1. Follow through with your scheduled aftercare appointments. If unable to keep an appointment, please call to reschedule. 2. Take your medication only as prescribed. Medication should not be changed or stopped without the approval of your doctor. In the event of worsening symptoms or concerns about side effects, contact your doctor immediately. 3. Utilize new healthy coping skills, anger management skills, and stress management skills learned during your hospitalization. Journal feelings and process them with a support person. Identify stressors or situations that may result in relapse, deterioration or inappropriate behaviors and develop a plan to deal with those issues. 4. If your coping skills are ineffective and you are in crisis, contact your outpatient providers for direction. If unable to reach your providers, please call the [facility] CRISIS LINE AT , go to the [facility] walk-in center at [address], [address], [place], or go to the closest Emergency Room. 5. Avoid alcohol and un-prescribed drugs. 6. You have been provided with the Mental Health Advance Directives Pamphlet for your review. 7. Your condition is stable for discharge to outpatient level of care, but recovery is an ongoing process. Ifthoughts to harm yourself or others return, follow the safety plan developed during your stay. Planning for a safe return home includes securing weapons. Our treatment team recommends weaponsbe removed from the home until your outpatient provider reassesses your progress. In rare cases where the items themselvescannot be removed, guns and ammunitionshould be secured separatelyand keys stored by a reliable personoutside of the home. If you were admitted on an involuntary commitment, the police or other legal authorities may be involved in this process. AFTERCARE APPOINTMENTS: * Please call your insurance company prior to your scheduled appointment to confirm your aftercare providers are covered. Take your insurance information to your appointments. WHO TO CALL AND WHEN: Medical Emergencies: For questions or emergencies related to your hospital stay, please contact the Inpatient Behavioral Health Unit at [phone]. A social service worker is on-call 07/01 for the Behavioral Health Unit for emergencies At any time you feel your situation is an emergency, you may also call 911 immediately. Pending Studies at Discharge: No Stand-Alone Forms: My Mister Spex, Smoking Cessation Medications and DC Order Prescriptions: New escitalopram oxalate [Lexapro] 10 mg tablet 10 mg PO DAILY Qty: 30 RF: 0 Discharge Orders: Discharge Order (Routine); Ordered 11/25/21 Ordered By: Teena Chavez Admission Data Admit Date/Time: 11/23/21 00:43 Attending Provider: Teena Chavez Admit Provider: Sandy Noble Primary Care Provider: PCP,NO Coding Level of Care Code 81749 D/C day mgmt > 30 min Diagnoses Recurrent moderate major depressive disorder with anxiety F33.1; F41.9 Generalized anxiety disorder with panic attacks F41.1; F41.0 Suicidal ideation R45.851
== END 2021-11-25 14:40 | disposition home or self-care (01) | DRG 885 ==
LOC: ED 18:52 → 3S 11-23 00:43 → SUATTDRO 11-23 00:43 → 3S 11-23 01:10